=== PATIENT | male | born 1990 ===

== ENCOUNTER 2017-09-14 18:52 | Emergency (ER) | payer OTHER ==
[~2017-09-14] VITALS: Ht 190.5 cm; Wt 99.0 kg
[2017-09-14 19:22] VITALS: BP 143/85
[2017-09-14 19:58] LABS: CLARITY,URINE CLEAR (Clear); COLOR,URINE YELLOW (Yellow); GLUCOSE, URINE NEGATIVE (Neg); KETONES,URINE NEGATIVE (Neg); LEUKOCYTE ESTERASE ,URINE NEGATIVE (Neg); NITRITES, URINE NEGATIVE (Neg); OCCULT BLOOD,URINE LARGE (Neg); PROTEIN,URINE TRACE mg/dl (Neg); UROBILINOGEN,URINE 0.2 E.U/dL (0.2-1.0)
[2017-09-14 20:01] LABS: UA COLLECTION TYPE CLN CATCH MIDSTREAM
[2017-09-14 20:07] LABS: BACTERIA,URINE NONE SEEN /HPF (Neg); MUCUS STRANDS NONE SEEN /LPF (Neg); RBC,URINE TNTC /HPF (0-2); SQUAMOUS EPITHELIAL CELL,UR NONE SEEN /LPF (FEW); WBC,URINE 0-4 /HPF (0-4)
== END 2017-09-14 21:05 | disposition left against medical advice (07) ==
LOC: ER 18:53
DX: R10.9 Unspecified abdominal pain (principal); Z53.21 Procedure and treatment not carried out due to patient leaving prior to being seen by health care provider
CPT/HCPCS: 81001; 99281